=== PATIENT | male | born 1990 | race Caucasian/White ===

== ENCOUNTER → 2016-06-29 | Outpatient (CLI) | payer OTHER ==
--- NOTE | 2016-06-29 15:57 | REP ---
MRI right elbow without contrast: History: Right elbow pain. Comparison radiographs March 12, 2016. Comparison MRI study of the right elbow is from [facility] dated March 26, 2016. This is read as showing bone bruise in the lateral epicondyle with lateral collateral ligament injury and ulnar collateral ligament injury. Initial radiographs from March 12, 2016 show a right elbow dislocation with posterior displacement of the radius and ulna. Technique: Axial, coronal and sagittal imaging planes utilized for T1, proton density T2-weighted scans obtained in the usual fashion with and without fat saturation. MRI findings: The radial capitellar and the ulnar trochlear articulations are normally aligned. Cortical and medullary bone signal intensity are normal. No juxtaarticular cyst or fluid collection is seen. No significant joint effusion is evident. The triceps tendon appears intact. There is heterogeneous signal intensity along the course of the brachialis tendon. Discontinuity is seen in the distal brachialis tendon consistent with a brachialis tendon disruption approximately a centimeter proximal to the coronoid insertion. The biceps tendon appears morphologically intact on today's MR images. The medial collateral ligament is ill-defined particularly proximally. There is heterogeneous thickening adjacent to the medial epicondyle. The lateral collateral ligament is better defined. No MR evidence of disruption here. The annular ligament about the proximal radius is not well defined. No other abnormality is seen. Impression: Evidence of a torn distal brachialis tendon just proximal to its insertion on the coronoid. Biceps and triceps tendons appear to be intact. There are post-traumatic changes associated with the medial and lateral collateral ligaments. No juxtaarticular cyst or joint effusion is seen. No evidence of fracture seen. Signed by Braydon Herrera MD 06/29/2016 04:24 P
== END | disposition home or self-care (01) ==
LOC: M RAD 14:07
PROVIDERS: ATTEND Orthopaedic Surgery
DX: S53.401A Unspecified sprain of right elbow, initial encounter (principal); X58.XXXA Exposure to other specified factors, initial encounter; Y92.9 Unspecified place or not applicable; Y93.9 Activity, unspecified; Y99.9 Unspecified external cause status

== ENCOUNTER → 2016-07-14 | Outpatient (CLI) | payer OTHER ==
--- NOTE | 2016-07-16 08:42 | REP ---
MRI LUMBAR SPINE WITHOUT CONTRAST: HISTORY: Back pain. There is no disc bulge or herniation at the L1-2 through L3-4 and L5-S1 levels. The nerves exit the neural foramina without compression. A diffuse disc bulge is present at the L4-5 level. There is minimal compression of the thecal sac. The L4 nerves exit the neural foramina without compression. The conus medullaris is normal in appearance terminating at the level of the T12-L1 intervertebral disc. Normal signal intensity is present in the lumbar intervertebral discs and vertebral bodies. IMPRESSION: Diffuse disc bulge at the L4-5 level with minimal thecal sac compression. Signed by Felipe Dias MD 07/16/2016 08:43 A
== END ==
LOC: M RAD 10:57
PROVIDERS: ATTEND Physician Assistant
DX: M51.06 Intervertebral disc disorders with myelopathy, lumbar region (principal)

== ENCOUNTER 2016-11-26 16:49 | Emergency (ER) | payer OTHER ==
[~2016-11-26] VITALS: Ht 180.3 cm; Wt 84.9 kg
[2016-11-26] MEDS ORDERED: CETI10TA (17:02)
[2016-11-26] MEDS ORDERED: GABA-282 (17:02)
[2016-11-26] MEDS ORDERED: OXYC-517 (17:02)
--- NOTE | 2016-11-26 19:20 | REPUSA ---
Clinical history: Pain. Findings: Real-time ultrasound imaging of the testicles and scrotum was performed. The right testicle measures 4.2 x 2.5 x 2.9 cm. The left testicle measures 4.5 x 2.3 x 3.2 cm. There is a tiny cyst in the left epididymis measuring 2 mm. The testicles demonstrate normal echo texture and echogenicity. Normal color Doppler flow and arterial waveforms are seen bilaterally. No fluid collections are seen. There is no evidence of it hernia. Impression: Unremarkable ultrasound examination of the testicles.
[2016-11-26] MEDS ORDERED: NAPR500T3 PO (20:23)
[2016-11-26 20:36] VITALS: BP 125/78
== END 2016-11-26 20:37 | disposition home or self-care (01) ==
LOC: M ED 16:49
DX: R10.813 Right lower quadrant abdominal tenderness (principal); N50.811 Right testicular pain; Z79.899 Other long term (current) drug therapy

== ENCOUNTER → 2018-05-16 | Outpatient (CLI) | payer OTHER ==
[~2018-05-16] MED LIST: CETI10TA; CONRAY-43 43% 50ML VIAL (Q9960) As Ordered ONE; GABA-843; LIDOCAINE 1% MDV 20ML VIAL As Ordered ONE; NAPR-885 PO; OXYC-517; TRIAMCINOLONE ACETONIDE SUSP 40 MG/ML VIAL (J3301) As Ordered ONE
--- NOTE | 2018-05-16 17:23 | REP ---
RIGHT HIP ARTHROGRAM AND MEDICATION INJECTION: The patient was referred for right hip arthrogram and medication injection. Informed consent was obtained for the procedure. Under sterile conditions and after satisfactory administration of local anesthesia, using fluoroscopic guidance, access to the right hip joint is obtained using a 22-gauge spinal needle. Injection of a tiny amount of radiographic contrast confirms needle placement within the joint. Then a mixture of 9 mL 1% lidocaine and 1 mL Kenalog 40 mg/mL was injected. There were no immediate complications. Needle was removed. Hemostasis was obtained. Patient was discharged in stable condition. 0.2 minutes fluoroscopy time utilized for the procedure. Electronically Signed by Pavel Cleveland MD 05/22/2018 11:12 P
== END ==
LOC: M RADPRO 10:06
PROVIDERS: ATTEND Orthopaedic Surgery
DX: M25.551 Pain in right hip (principal); G89.29 Other chronic pain; Z79.899 Other long term (current) drug therapy